=== PATIENT | female | born 1990 | race Caucasian/White ===

== ENCOUNTER 2019-05-19 11:55 | Emergency (ER) | payer MEDICAID ==
[2019-05-19] MEDS ORDERED: Sodium Chloride 0.9% 10 ML Syringe FLUSH PRN (12:33)
[2019-05-19] MEDS ORDERED: Sodium Chloride 0.9% 1,000 ML IV STA (12:33)
--- NOTE | 2019-05-19 14:29 | EDM.PDOC ---
ED HPI GENERAL MEDICAL PROBLEM - General Chief Complaint: Syncope Stated Complaint: SYNCOPE Time Seen by Provider: 05/19/19 12:21 Source of Information: Reports: Patient History Limitations: Reports: No Limitations - History of Present Illness INITIAL COMMENTS - FREE TEXT/NARRATIVE: The patient presents for syncope. She was at work and did not feel right. She was a little nauseated. She went to go sit down and she did not make it. She passed out. She was out for a couple seconds. She has no injuries. She has no headache, neck pain, chest pain or abdominal pain. She is at about 10 weeks gestation. Her LNMP is 03/03/19. She has no vaginal bleeding or discharge. She feels better now. She has no fever, chills, or cough. Onset: Gradual Duration: Minutes: Severity: Moderate Improves with: Reports: None Worsens with: Reports: None Associated Symptoms: Reports: No Other Symptoms - Related Data Allergies Allergy/AdvReac Type Severity Reaction Status Date / Time azithromycin Allergy Hives Verified 05/19/19 12:24 lanolin Allergy Cannot Verified 05/19/19 12:24 Remember Pain Medication. Allergy Airway Uncoded 05/19/19 12:24 Tightness Home Meds: Home Meds Pnv No.95/Ferrous Fum/Folic AC [ Caplet] 1 tab PO DAILY 05/19/19 [ History] Past Medical History - Past Surgical History HEENT Surgical History: Reports: Oral Surgery GI Surgical History: Reports: Cholecystectomy Female Surgical History: Reports: Section Neurological Surgical History: Reports: C-Spine Social & Family History - Tobacco Use Smoking Status *Q: Current Every Day Smoker Years of Tobacco use: 14 Packs/Tins Daily: 0.2 - Caffeine Use Caffeine Use: Reports: Coffee, Soda - Recreational Drug Use Recreational Drug Use: No ED ROS GENERAL - Review of Systems Review Of Systems: See Below Constitutional: Reports: No Symptoms HEENT: Reports: No Symptoms Respiratory: Reports: No Symptoms Cardiovascular: Reports: Syncope. Denies: Chest Pain Endocrine: Reports: No Symptoms GI/Abdominal: Reports: No Symptoms : Reports: No Symptoms - Physical Exam Exam: See Below Exam Limited By: No Limitations General Appearance: Alert, No Apparent Distress Ears: Normal External Exam Nose: Normal Inspection Head Exam: Atraumatic, Normocephalic Neck: Normal Inspection, Supple, Non-Tender Respiratory/Chest: No Respiratory Distress, Lungs Clear, Normal Breath Sounds Cardiovascular: Regular Rate, Rhythm, No Edema, No Murmur GI/Abdominal: Soft, Non-Tender, No Organomegaly, No Mass Neuro Exam (Abbreviated): Alert, Oriented, No Motor/Sensory Deficits Course - Vital Signs Last Recorded V/S: Last Vital Signs Temp 97.8 F 05/19/19 12:20 Pulse 56 L 05/19/19 12:20 Resp 21 H 05/19/19 12:20 BP 108/51 L 05/19/19 12:20 Pulse Ox 100 05/19/19 12:20 Orthostatic Blood Pressure [ 103/75 Standing] Orthostatic Blood Pressure [ 103/79 Sitting] Orthostatic Blood Pressure [ 96/52 Supine] - Orders/Labs/Meds Orders: Active Orders 24 hr Category Date Time Status Orthostatic Vital Signs [RC] ASDIRECTED Care 05/19/19 12:28 Active Peripheral IV Care [RC] . DIRECTED Care 05/19/19 12:33 Active UA W/MICROSCOPIC [URIN] Stat Lab 05/19/19 14:00 Results Sodium Chloride 0.9% [Saline Flush] Med 05/19/19 12:33 Active 10 ml FLUSH ASDIRECTED PRN Peripheral IV Insertion Adult [OM.PC] Stat Oth 05/19/19 12:33 Ordered Medication Orders Sodium Chloride (Saline Flush) 10 ml FLUSH ASDIRECTED PRN PRN Reason: Keep Vein Open Last Admin: 05/19/19 12:50 Dose: 10 ml Labs: Laboratory Tests 05/19/19 05/19/19 05/19/19 Range/Units 12:50 12:50 12:50 WBC 8.84 (3.98-10.04) K/mm3 RBC 4.25 (3.98-5.22) M/mm3 Hgb 13.1 (11.2-15.7) gm/dl Hct 39.2 (34.1-44.9) % MCV 92.2 (79.4-94.8) fl MCH 30.8 (25.6-32.2) pg MCHC 33.4 (32.2-35.5) g/dl RDW Std Deviation 39.7 (36.4-46.3) fL Plt Count 331 (182-369) K/mm3 MPV 9.8 (9.4-12.3) fl Neut % (Auto) 67.0 (34.0-71.1) % Lymph % (Auto) 21.3 (19.3-51.7) % [place] % (Auto) 10.6 (4.7-12.5) % Eos % (Auto) 0.9 (0.7-5.8) Baso % (Auto) 0.1 (0.1-1.2) % Neut # (Auto) 5.92 (1.56-6.13) K/mm3 Lymph # (Auto) 1.88 (1.18-3.74) K/mm3 [place] # (Auto) 0.94 H (0.24-0.36) K/mm3 Eos # (Auto) 0.08 (0.04-0.36) K/mm3 Baso # (Auto) 0.01 (0.01-0.08) K/mm3 Sodium 138 (136-145) mEq/L Potassium 3.2 L (3.5-5.1) mEq/L Chloride 104 (98-107) mEq/L Carbon Dioxide 24 (21-32) mEq/L Anion Gap 13.2 (5-15) BUN 7 (7-18) mg/dL Creatinine 0.5 L (0.55-1.02) mg/dL Est Cr Clr Drug Dosing 149.39 mL/min Estimated GFR (MDRD) > 60 (>60) mL/min BUN/Creatinine Ratio 14.0 (14-18) Glucose 85 (74-106) mg/dL Calcium 8.6 (8.5-10.1) mg/dL Total Bilirubin 0.3 (0.2-1.0) mg/dL AST 10 L (15-37) U/L ALT 16 (14-59) U/L Alkaline Phosphatase 44 L (46-116) U/L Total Protein 7.0 (6.4-8.2) g/dl Albumin 3.2 L (3.4-5.0) g/dl Globulin 3.8 gm/dL Albumin/Globulin Ratio 0.8 L (1-2) HCG, Quant 73448.0 mIU/mL Urine Color (Yellow) Urine Appearance (Clear) Urine pH (5.0-8.0) Ur Specific [place] (1.005-1.030) Urine Protein (Negative) Urine Glucose (UA) (Negative) Urine Ketones (Negative) Urine Occult Blood (Negative) Urine Nitrite (Negative) Urine Bilirubin (Negative) Urine Urobilinogen (0.2-1.0) Ur Leukocyte Esterase (Negative) 05/19/19 Range/Units 14:00 WBC (3.98-10.04) K/mm3 RBC (3.98-5.22) M/mm3 Hgb (11.2-15.7) gm/dl Hct (34.1-44.9) % MCV (79.4-94.8) fl MCH (25.6-32.2) pg MCHC (32.2-35.5) g/dl RDW Std Deviation (36.4-46.3) fL Plt Count (182-369) K/mm3 MPV (9.4-12.3) fl Neut % (Auto) (34.0-71.1) % Lymph % (Auto) (19.3-51.7) % [place] % (Auto) (4.7-12.5) % Eos % (Auto) (0.7-5.8) Baso % (Auto) (0.1-1.2) % Neut # (Auto) (1.56-6.13) K/mm3 Lymph # (Auto) (1.18-3.74) K/mm3 [place] # (Auto) (0.24-0.36) K/mm3 Eos # (Auto) (0.04-0.36) K/mm3 Baso # (Auto) (0.01-0.08) K/mm3 Sodium (136-145) mEq/L Potassium (3.5-5.1) mEq/L Chloride (98-107) mEq/L Carbon Dioxide (21-32) mEq/L Anion Gap (5-15) BUN (7-18) mg/dL Creatinine (0.55-1.02) mg/dL Est Cr Clr Drug Dosing mL/min Estimated GFR (MDRD) (>60) mL/min BUN/Creatinine Ratio (14-18) Glucose (74-106) mg/dL Calcium (8.5-10.1) mg/dL Total Bilirubin (0.2-1.0) mg/dL AST (15-37) U/L ALT (14-59) U/L Alkaline Phosphatase (46-116) U/L Total Protein (6.4-8.2) g/dl Albumin (3.4-5.0) g/dl Globulin gm/dL Albumin/Globulin Ratio (1-2) HCG, Quant mIU/mL Urine Color Yellow (Yellow) Urine Appearance Clear (Clear) Urine pH 7.0 (5.0-8.0) Ur Specific [place] 1.020 (1.005-1.030) Urine Protein 1+ H (Negative) Urine Glucose (UA) Negative (Negative) Urine Ketones Negative (Negative) Urine Occult Blood Negative (Negative) Urine Nitrite Negative (Negative) Urine Bilirubin Negative (Negative) Urine Urobilinogen 0.2 (0.2-1.0) Ur Leukocyte Esterase Negative (Negative) Meds: Medications Generic Name Dose Route Start Last Admin Trade Name Freq PRN Reason Stop Dose Admin Sodium Chloride 10 ml 05/19/19 12:33 05/19/19 12:50 Saline Flush FLUSH 10 ml ASDIRECTED PRN Administration Keep Vein Open Discontinued Medications Generic Name Dose Route Start Last Admin Trade Name Freq PRN Reason Stop Dose Admin Sodium Chloride 1,000 mls @ 1,000 mls/hr 05/19/19 12:33 05/19/19 13:00 Normal Saline IV 05/19/19 13:32 1,000 mls/hr .BOLUS STA Administration - Re-Assessments/Exams Free Text/Narrative Re-Assessment/Exam: 05/19/19 14:27 I ordered an IV NS 1L bolus, labs, UA and an US to evaluate the fetus. Her CBC looks good. Her K was low at 3.2. Her HCG is elevated at 31,711. Her UA shows no UTI. I am waiting for the US report. 05/19/19 15:03 The US shows single IUP at 12 weeks 6 days gestation. ALEJO is 11/25/19. Small subchorionic hemorrhage believed to be old. Nothing acute is appreciated on obstetrical US. Departure - Departure Time of Disposition: 15:05 Disposition: Home, Self-Care 01 Condition: Good Clinical Impression: Dehydration Syncope Qualifiers: Syncope type: unspecified Qualified Code(s): R55 - Syncope and collapse Qualifiers: Weeks of gestation: 12 weeks Qualified Code(s): Z3A.12 - 12 weeks gestation of - Discharge Information *PRESCRIPTION DRUG MONITORING PROGRAM REVIEWED*: Not Applicable *COPY OF PRESCRIPTION DRUG MONITORING REPORT IN PATIENT TINO: Not Applicable Referrals: Hien Burch MD [Primary Care Provider] - 1 Week Forms: ED Department Discharge, ED Return to Work/School Form Additional Instructions: Drink plenty of fluids. Take tylenol for any pain. Follow up with Dr Bruch. Please return if you are worse. Sepsis Event Note - Evaluation Sepsis Screening Result: No Definite Risk - Focused Exam Vital Signs: Vital Signs Temp Pulse Resp BP Pulse Ox 05/19/19 12:20 97.8 F 56 L 21 H 108/51 L 100 Date Exam was Performed: 05/19/19 Time Exam was Performed: 15:03 - My Orders Last 24 Hours: My Active Orders 05/19/19 12:28 Orthostatic Vital Signs [RC] ASDIRECTED 05/19/19 12:33 Peripheral IV Care [RC] . DIRECTED Sodium Chloride 0.9% [Saline Flush] 10 ml FLUSH ASDIRECTED PRN Peripheral IV Insertion Adult [OM.PC] Stat 05/19/19 14:00 UA W/MICROSCOPIC [URIN] Stat - Assessment/Plan Last 24 Hours: My Active Orders 05/19/19 12:28 Orthostatic Vital Signs [RC] ASDIRECTED 05/19/19 12:33 Peripheral IV Care [RC] . DIRECTED Sodium Chloride 0.9% [Saline Flush] 10 ml FLUSH ASDIRECTED PRN Peripheral IV Insertion Adult [OM.PC] Stat 05/19/19 14:00 UA W/MICROSCOPIC [URIN] Stat
--- NOTE | 2019-05-19 14:54 | US ---
Obstetrical ultrasound: Multiple real-time images were obtained transabdominally. Comparison: No prior imaging for current is available. Dates: Current ultrasound: ALEJO 11/25/19, gestational age 12 weeks 6 days Minimal subchorionic hemorrhage is seen believed to be old. Single intrauterine fetus is seen. Amniotic fluid volume is normal. Placenta is developing anteriorly without findings of abruption. Maternal ovaries are seen and appear within normal limits. Measurements: Oliver-rump length: 6.01 cm - 12 weeks 4 days BPD: 1.92 cm - 13 weeks 1 day Head circumference: 7.06 cm - 13 weeks 0 days Abdominal circumference: 6.11 cm - 13 weeks 0 days Femur length: 0.64 cm - 12 weeks 0 days Estimated weight: 59 g (0 lbs. 2 oz.), Estimated weight at the 8th percentile for age by current ultrasound Heart rate: 144 bpm Impression: 1. Single intrauterine gestation. Dates as noted above. 2. Small subchorionic hemorrhage believed to be old. 3. Nothing acute is appreciated on obstetrical ultrasound. Diagnostic code #2 This report was dictated in [place] Standard Time
== END 2019-05-19 15:24 | disposition home or self-care (01) ==
LOC: JD.ED 11:55
DX: O99.281 Endocrine, nutritional and metabolic diseases complicating pregnancy, first trimester (principal); E86.0 Dehydration; O99.89 Other specified diseases and conditions complicating pregnancy, childbirth and the puerperium; R55 Syncope and collapse; O99.331 Smoking (tobacco) complicating pregnancy, first trimester; F17.210 Nicotine dependence, cigarettes, uncomplicated; Z3A.12 12 weeks gestation of pregnancy; Z88.8 Allergy status to other drugs, medicaments and biological substances; Z88.1 Allergy status to other antibiotic agents; Z90.49 Acquired absence of other specified parts of digestive tract
CPT/HCPCS: 36415; 76801; 80053; 81001; 84702; 85025; 96360; 99284; J7030; 99283

== ENCOUNTER 2019-11-18 04:26 | Inpatient (IN) | payer MEDICAID ==
[~2019-11-18 04:26] MED LIST: Citric Acid/Sodium Citrate Solution 30 ML Cup PO ONE; Lactated Ringers 1,000 ML IV SCH; Metoclopramide 10 MG/2 ML SDV IVPUSH ONE; Sodium Chloride 0.9% 10 ML Syringe FLUSH PRN
[2019-11-18] MEDS ORDERED: Sodium Chloride 0.9% 10 ML Syringe FLUSH PRN (05:30)
[2019-11-18] MEDS ORDERED: Citric Acid/Sodium Citrate Solution 30 ML Cup ONE (06:11)
[2019-11-18] MEDS ORDERED: Lactated Ringers 2,000 ML ONE ×2 (06:11→06:45)
[2019-11-18] MEDS: Lactated Ringers 1,000 ML IV SCH ×2 (06:22→06:50)
[2019-11-18] MEDS ORDERED: Metoclopramide 10 MG/2 ML SDV IVPUSH ONE (06:30)
[2019-11-18] MEDS ORDERED: Citric Acid/Sodium Citrate Solution 30 ML Cup PO ONE (06:30)
[2019-11-18] MEDS ORDERED: ceFAZolin 1 GM Vial ONE (06:45)
[2019-11-18] MEDS ORDERED: Ondansetron 4 MG/2 ML SDV ONE (06:45)
[2019-11-18] MEDS ORDERED: Morphine PF 1 MG/ML Amp ONE (06:45)
[2019-11-18] MEDS ORDERED: Oxytocin 10 Units/1 ML SDV ONE (06:45)
[2019-11-18] MEDS ORDERED: Ketorolac 30 MG/ML SDV ONE (06:45)
[2019-11-18] MEDS ORDERED: Bupivacaine 0.75%/D5W 2 ML Amp ONE (06:47)
[2019-11-18] MEDS ORDERED: Bupivacaine 0.5% 30 ML SDV ONE (07:17)
[2019-11-18] MEDS ORDERED: Midazolam 1 MG/ML 2 ML SDV ONE ×2 (08:46→08:52)
[2019-11-18] MEDS ORDERED: fentaNYL 100 MCG/2 ML SDV ONE (08:50)
[2019-11-18] MEDS ORDERED: Ketamine 500 mg/10 ML MDV ONE (08:59)
[2019-11-18] MEDS ORDERED: HYDROmorphone 0.5 MG/0.5 ML Syringe ONE ×2 (09:14→09:19)
[2019-11-18] MEDS ORDERED: diphenhydrAMINE 50 MG/ML SDV IVPUSH PRN ×2 (09:30→09:35)
[2019-11-18] MEDS ORDERED: Ondansetron 4 MG/2 ML SDV IVPUSH PRN (09:30)
[2019-11-18] MEDS ORDERED: fentaNYL 100 MCG/2 ML SDV IVPUSH PRN (09:30)
--- NOTE | 2019-11-18 09:30 | PCM.OPNOTE ---
- General Post-Op/Procedure Note Date of Surgery/Procedure: 11/18/19 Operative Procedure(s): repeat Findings: viable male, weight 6#7oz, apgars pending, normal uterus, tubes and ovaries at 0910. Primary Surgeon: Ana Laura Stern Anesthesia Provider: Marilin Quick Mowing Machine Operator: Hien Burch Fluid Replacement, Intraop: 2,000 Output, Urine Amount: 100 EBL in mLs: 800 Complications: None Condition: Good Free Text/Narrative:: The patient was taken to the operating room where spinal anesthesia was dosed to surgical levels without difficulty. The patient was prepped and draped in the usual sterile fashion in the dorsal supine position with a leftward tilt. A Pfannenstiel skin incision was made with the scalpel and carried through to the underlying layer of fascia. The fascia was incised in the midline and extended laterally using Hess scissors. Yen clamps were used to elevate the superior aspect of the fascial incision, which was elevated, and the underlying rectus muscles were dissected off bluntly and using Hess scissors. Attention was then turned to the inferior aspect of the fascial incision, which in similar fashion was grasped with Yen clamps, elevated, and the underlying rectus muscles were dissected off bluntly and using the hess. The rectus muscles were dissected in the midline. The peritoneum was entered bluntly; this incision was extended superiorly and inferiorly with good visualization of the bladder. The bladder blade was inserted. The vesicouterine peritoneum was identified and entered sharply using Metzenbaum scissors. This incision was extended laterally and the bladder flap was created digitally. The bladder blade was reinserted. The lower uterine segment was incised in a transverse fashion using the scalpel and with digital traction. Clear fluid was noted. The infant was subsequently delivered by flexing the head to the incision. Body and shoulders followed without difficulty. The cord was clamped and cut. The infant was subsequently handed to the awaiting seed sales manager whose presence had been requested.. The placenta was delivered spontaneously intact with a three-vessel cord noted. The uterus was exteriorized and cleared of all clots and debris. The uterine incision was repaired in 2 layers using 0 monocryl. Hemostasis was visualized. Hemostasis was visualized bilaterally. The uterus was returned to the abdomen. The uterine incision was reexamined and it was noted to be hemostatic. The pelvis was copiously irrigated. The fascia was closed with 1 PDS suture, and the skin was closed with 3-0 monocryl. Sponge, lap, and instrument counts were correct x2. The patient was stable at the c ompletion of the procedure and was subsequently transferred to the recovery room in stable condition.
--- NOTE | 2019-11-18 09:32 | PCM.POSTAN ---
POST ANESTHESIA ASSESSMENT - MENTAL STATUS Mental Status: Alert, Oriented - VITAL SIGNS Vital Signs: Last Vital Signs Temp 36.3 C 11/18/19 05:36 Pulse 77 11/18/19 05:36 Resp 16 11/18/19 05:36 BP 121/66 11/18/19 05:36 Pulse Ox 97 11/18/19 05:36 0922 123/65 72 12 96% 97.4F - RESPIRATORY Respiratory Status: Respiratory Rate WNL, Airway Patent, O2 Saturation Stable - CARDIOVASCULAR CV Status: Pulse Rate WNL, Blood Pressure Stable - GASTROINTESTINAL GI Status: No Symptoms - PAIN Pain Score: 5 - POST OP HYDRATION Hydration Status: Adequate & Stable
[2019-11-18] MEDS ORDERED: ePHEDrine 50 MG/ML SDV IVPUSH PRN (09:35)
[2019-11-18] MEDS ORDERED: Dextrose 5%-Lactated Ringers 1,000 ML IV SCH (09:35)
[2019-11-18] MEDS ORDERED: Naloxone 0.4 MG/ML SDV IVPUSH PRN (09:35)
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
[2019-11-18] MEDS ORDERED: Acetaminophen/oxyCODONE 325-5 MG Tab PO PRN (10:18)
[2019-11-18] MEDS: Acetaminophen/oxyCODONE 325-5 MG Tab PO PRN ×3 (12:56→23:08)
[2019-11-18] MEDS: Ketorolac 30 MG/ML SDV IVPUSH SCH ×2 (14:57→21:01)
[2019-11-19] MEDS: Ketorolac 30 MG/ML SDV IVPUSH SCH (03:17)
[2019-11-19] MEDS: Acetaminophen/oxyCODONE 325-5 MG Tab PO PRN ×5 (04:43→23:17)
--- NOTE | 2019-11-19 08:37 | PCM48HPAN ---
Post Anesthesia Note - EVALUATION WITHIN 48HRS OF ANESTHETIC Vital Signs in Normal Range: Yes Patient Participated in Evaluation: Yes Respiratory Function Stable: Yes Airway Patent: Yes Cardiovascular Function Stable: Yes Hydration Status Stable: Yes Pain Control Satisfactory: Yes Nausea and Vomiting Control Satisfactory: Yes Mental Status Recovered: Yes Vital Signs: Last Vital Signs Temp 36.4 C 11/19/19 03:24 Pulse 74 11/19/19 03:24 Resp 16 11/19/19 06:55 BP 118/70 11/19/19 03:24 Pulse Ox 98 11/19/19 03:24 - COMMENTS/OBSERVATIONS Free Text/Narrative:: no anesthesia complications noted
--- NOTE | 2019-11-19 08:37 | PCM.PNPP ---
- General Info Date of Service: 11/19/19 Functional Status: Reports: Pain Controlled - Review of Systems General: Reports: No Symptoms HEENT: Reports: No Symptoms Pulmonary: Reports: No Symptoms Cardiovascular: Reports: No Symptoms Gastrointestinal: Reports: No Symptoms Genitourinary: Reports: No Symptoms Musculoskeletal: Reports: No Symptoms Skin: Reports: No Symptoms Neurological: Reports: No Symptoms Psychiatric: Reports: No Symptoms - Patient Data Vital Signs - Most Recent: Last Vital Signs Temp 36.4 C 11/19/19 03:24 Pulse 74 11/19/19 03:24 Resp 16 11/19/19 06:55 BP 118/70 11/19/19 03:24 Pulse Ox 98 11/19/19 03:24 Weight - Most Recent: 117.617 kg I&O - Last 24 Hours: Intake & Output 11/18/19 11/19/19 11/19/19 22:59 06:59 14:59 Intake Total 1800 Output Total 1999 2150 200 Balance -200 -2150 -200 Lab Results - Last 24 Hours: Laboratory Results - last 24 hr 11/18/19 11/18/19 11/19/19 Range/Units 06:21 06:21 04:38 WBC 14.26 H (3.98-10.04) K/mm3 RBC 3.75 L (3.98-5.22) M/mm3 Hgb 11.3 (11.2-15.7) gm/dl Hct 34.8 (34.1-44.9) % MCV 92.8 (79.4-94.8) fl MCH 30.1 (25.6-32.2) pg MCHC 32.5 (32.2-35.5) g/dl RDW Std Deviation 40.9 (36.4-46.3) fL Plt Count 426 H (182-369) K/mm3 MPV 10.6 (9.4-12.3) fl Neut % (Auto) 67.9 (34.0-71.1) % Lymph % (Auto) 21.5 (19.3-51.7) % Potter % (Auto) 8.8 (4.7-12.5) % Eos % (Auto) 1.1 (0.7-5.8) Baso % (Auto) 0.2 (0.1-1.2) % Neut # (Auto) 9.69 H (1.56-6.13) K/mm3 Lymph # (Auto) 3.06 (1.18-3.74) K/mm3 Potter # (Auto) 1.25 H (0.24-0.36) K/mm3 Eos # (Auto) 0.16 (0.04-0.36) K/mm3 Baso # (Auto) 0.03 (0.01-0.08) K/mm3 RPR Non-reactive (NONREACTIVE) Blood Type B POSITIVE Gel Antibody Screen Negative Med Orders - Current: Current Medications Diphenhydramine HCl (Benadryl) 25 mg IVPUSH Q6H PRN PRN Reason: Pruritis Last Admin: 11/18/19 21:00 Dose: 25 mg Documented by: Diphenhydramine HCl (Benadryl) 25 mg IVPUSH Q6H PRN PRN Reason: Itching or Nausea Last Admin: 11/18/19 15:53 Dose: 25 mg Documented by: Ephedrine Sulfate (Ephedrine Sulfate) 5 mg IVPUSH SEECOMMENT PRN PRN Reason: Other Fentanyl (Sublimaze) 50 mcg IVPUSH Q5M PRN PRN Reason: Pain Last Admin: 11/18/19 09:35 Dose: 50 mcg Documented by: Ibuprofen (Motrin) 600 mg PO Q6H PRN PRN Reason: pain Naloxone HCl (Narcan) 0.1 mg IVPUSH SEECOMMENT PRN PRN Reason: Respiratory Depression Ondansetron HCl (Zofran) 4 mg IVPUSH ONETIME PRN PRN Reason: Nausea/Vomiting Oxycodone/Acetaminophen (Percocet 325-5 Mg) 1 tab PO Q4H PRN PRN Reason: Pain (moderate 4-6) Oxycodone/Acetaminophen (Percocet 325-5 Mg) 2 tab PO Q4H PRN PRN Reason: Pain (severe 7-10) Last Admin: 11/19/19 04:43 Dose: 2 tab Documented by: Discontinued Medications Bupivacaine HCl (Marcaine 0.5%) Confirm Administered Dose 30 ml .ROUTE .STK-MED ONE Stop: 11/18/19 07:18 Last Admin: 11/18/19 08:43 Dose: 20 ml Documented by: Bupivacaine HCl/Dextrose (Marcaine 0.75% Spinal) Confirm Administered Dose 2 ml .ROUTE .STK-MED ONE Stop: 11/18/19 06:48 Cefazolin Sodium (Ancef) Confirm Administered Dose 2 gm .ROUTE .ST-MED ONE Stop: 11/18/19 06:46 Citric Acid/Sodium Citrate (Bicitra Solution) 30 ml PO ONETIME ONE Stop: 11/18/19 00:31 Last Admin: 11/18/19 06:08 Dose: Not Given Documented by: Citric Acid/Sodium Citrate (Bicitra Solution) 30 ml PO ONETIME ONE Stop: 11/18/19 06:31 Last Admin: 11/18/19 07:07 Dose: 30 ml Documented by: Citric Acid/Sodium Citrate (Bicitra Solution) Confirm Administered Dose 30 ml .ROUTE .ST-MED ONE Stop: 11/18/19 06:12 Last Admin: 11/18/19 10:15 Dose: Not Given Documented by: Fentanyl (Sublimaze) Confirm Administered Dose 100 mcg .ROUTE .ST-MED ONE Stop: 11/18/19 08:51 Hydromorphone HCl (Dilaudid) Confirm Administered Dose 0.5 mg .ROUTE .STK-MED ONE Stop: 11/18/19 09:15 Hydromorphone HCl (Dilaudid) Confirm Administered Dose 0.5 mg .ROUTE .ST-MED ONE Stop: 11/18/19 09:20 Lactated Ringer's (Ringers, Lactated) 1,000 mls @ 125 mls/hr IV ASDIRECTED [facility] Lactated Ringer's (Ringers, Lactated) 1,000 mls @ 125 mls/hr IV ASDIRECTED [facility] Last Admin: 11/18/19 06:50 Dose: 125 mls/hr Documented by: Lactated Ringer's (Ringers, Lactated) Confirm Administered Dose 2,000 mls @ as directed .ROUTE .STK-MED ONE Stop: 11/18/19 06:12 Last Admin: 11/18/19 10:15 Dose: Not Given Documented by: Lactated Ringer's (Ringers, Lactated) Confirm Administered Dose 2,000 mls @ as directed .ROUTE .STK-MED ONE Stop: 11/18/19 06:46 Dextrose/Lactated Ringer's (Dextrose 5%-Lactated Ringers) 1,000 mls @ 125 mls/hr IV ASDIRECTED ADALBERTO Stop: 11/18/19 17:34 Last Admin: 11/18/19 11:23 Dose: 125 mls/hr Documented by: Ketamine HCl (Ketalar) Confirm Administered Dose 500 mg .ROUTE .STK-MED ONE Stop: 11/18/19 09:00 Ketorolac Tromethamine (Toradol) Confirm Administered Dose 30 mg .ROUTE .STK-MED ONE Stop: 11/18/19 06:46 Ketorolac Tromethamine (Toradol) 30 mg IVPUSH Q6H [facility] Stop: 11/19/19 03:01 Last Admin: 11/19/19 03:17 Dose: 30 mg Documented by: Metoclopramide HCl (Reglan) 10 mg IVPUSH ONETIME ONE Stop: 11/18/19 00:31 Last Admin: 11/18/19 06:08 Dose: Not Given Documented by: Metoclopramide HCl (Reglan) 10 mg IVPUSH ONETIME ONE Stop: 11/18/19 06:31 Last Admin: 11/18/19 07:07 Dose: 10 mg Documented by: Midazolam HCl (Versed 1 Mg/Ml) Confirm Administered Dose 2 mg .ROUTE .STK-MED ONE Stop: 11/18/19 08:47 Midazolam HCl (Versed 1 Mg/Ml) Confirm Administered Dose 2 mg .ROUTE .STK-MED ONE Stop: 11/18/19 08:53 Morphine Sulfate (Duramorph Pf) Confirm Administered Dose 1 mg .ROUTE .STK-MED ONE Stop: 11/18/19 06:46 Ondansetron HCl (Zofran) Confirm Administered Dose 4 mg .ROUTE .STK-MED ONE Stop: 11/18/19 06:46 Oxytocin (Pitocin) Confirm Administered Dose 10 unit .ROUTE .STK-MED ONE Stop: 11/18/19 06:46 Sodium Chloride (Saline Flush) 10 ml FLUSH ASDIRECTED PRN PRN Reason: Keep Vein Open Sodium Chloride (Saline Flush) 10 ml FLUSH ASDIRECTED PRN PRN Reason: Keep Vein Open - Interaction Infant Disposition, : [place] in Room with Family Support Person: Mother - Recovery Exam Fundal Tone: Firm Fundal Level: At Umbilicus Fundal Placement: Midline Lochia Amount: Scant Lochia Color: Rubra/Red Perineum Description: Intact, Minimal Bruising/Swelling Episiotomy/Laceration: None Bladder Status: Indwelling Catheter in Place Urinary Elimination: Indwelling Catheter - Exam General: Alert, Oriented HEENT: Pupils Equal Neck: Supple Lungs: Clear to Auscultation, Normal Respiratory Effort Cardiovascular: Regular Rate, Regular Rhythm GI/Abdominal Exam: Normal Bowel Sounds, Soft, Non-Tender, No Organomegaly, No Distention, No Abnormal Bruit, No Mass, Pelvis Stable Extremities: Normal Inspection, Normal Range of Motion, Non-Tender, No Pedal Edema, Normal Capillary Refill Skin: Warm, Dry, Intact Wound/Incisions: Healing Well Neurological: No New Focal Deficit Psy/Mental Status: Alert, Normal Affect, Normal Mood - Problem List Review Problem List Initiated/Reviewed/Updated: Yes - My Orders Last 24 Hours: My Active Orders 11/18/19 09:35 Naloxone [Narcan] 0.1 mg IVPUSH SEECOMMENT PRN diphenhydrAMINE [Benadryl] 25 mg IVPUSH Q6H PRN ePHEDrine [ePHEDrine sulfate] 5 mg IVPUSH SEECOMMENT PRN 11/18/19 09:35 Communication Order [RC] PER UNIT ROUTINE Communication Order [RC] PER UNIT ROUTINE Notify Provider Intake and Out [RC] ASDIRECTED Assess Lochia [WOMSER] Per Unit Routine Assess Uterine Involution [WOMSER] Per Unit Routine Medication Administration Instruction [OM.PC] Routine 11/18/19 10:08 Consult to Case Management/Change Release Manager [CONS] Routine 11/18/19 10:18 Acetaminophen/oxyCODONE [Percocet 325-5 MG] 1 tab PO Q4H PRN 11/18/19 10:20 Acetaminophen/oxyCODONE [Percocet 325-5 MG] 2 tab PO Q4H PRN 11/18/19 Lunch Regular Diet [DIET] 11/19/19 09:00 Ibuprofen [Motrin] 600 mg PO Q6H PRN 11/19/19 09:26 Urinary Catheter Removal [RC] Per Unit Routine - Assessment Assessment:: Term . Doing well today. Pain controlled. Incision excellent.
[2019-11-19] MEDS ORDERED: Ibuprofen 600 MG Tab PO PRN (09:00)
[2019-11-19] MEDS: Docusate Sodium 100 MG Cap PO PRN (17:31)
--- NOTE | 2019-11-20 09:24 | PCM.DCSUM1 ---
Discharge Summary - Hospital Course Free Text/Narrative:: [facility] Post-Op/Procedure Note Patient Name: OSCAR VAZQUEZ Date of : 89 Patient Status: Inpatient Attending Provider: Ana Laura Stern Date: 11/18/19 09:28 Initialization Date: 11/18/19 09:28 - General Post-Op/Procedure Note Date of Surgery/Procedure: 11/18/19 Operative Procedure(s): repeat Findings: viable male, weight 6#7oz, apgars pending, normal uterus, tubes and ovaries at 0910. Primary Surgeon: Ana Laura Stern Anesthesia Provider: Marilin Quick Zmt Operator: Hien Burch Fluid Replacement, Intraop: 2,000 Output, Urine Amount: 100 EBL in mLs: 800 Complications: None Condition: Good Free Text/Narrative:: The patient was taken to the operating room where spinal anesthesia was dosed to surgical levels without difficulty. The patient was prepped and draped in the usual sterile fashion in the dorsal supine position with a leftward tilt. A Pfannenstiel skin incision was made with the scalpel and carried through to the underlying layer of fascia. The fascia was incised in the midline and extended laterally using Hess scissors. Yen clamps were used to elevate the superior aspect of the fascial incision, which was elevated, and the underlying rectus muscles were dissected off bluntly and using Hess scissors. Attention was then turned to the inferior aspect of the fascial incision, which in similar fashion was grasped with Yen clamps, elevated, and the underlying rectus muscles were dissected off bluntly and using the hess. The rectus muscles were dissected in the midline. The peritoneum was entered bluntly; this incision was extended superiorly and inferiorly with good visualization of the bladder. The bladder blade was inserted. The vesicouterine peritoneum was identified and entered sharply using Metzenbaum scissors. This incision was extended laterally and the bladder flap was created digitally. The bladder blade was reinserted. The lower uterine segment was incised in a transverse fashion using the scalpel and with digital traction. Clear fluid was noted. The was subsequently delivered by flexing the head to the incision. Body and shoulders followed without difficulty. The cord was clamped and cut. The infant was subsequently handed to the awaiting cosmetic sales consultant whose presence had been requested.. The placenta was delivered spontaneously intact with a three-vessel cord noted. The uterus was exteriorized and cleared of all clots and debris. The uterine incision was repaired in 2 layers using 0 monocryl. Hemostasis was visualized. Hemostasis was visualized bilaterally. The uterus was returned to the abdomen. The uterine incision was reexamined and it was noted to be hemostatic. The pelvis was copiously irrigated. The fascia was closed with 1 PDS suture, and the skin was closed with 3-0 monocryl. Sponge, lap, and instrument counts were correct x2. The patient was stable at the completion of the procedure and was subsequently transferred to the recovery room in stable condition. HPI Initial Comments: [facility] Post-Op/Procedure Note Patient Name: OSCAR VAZQUEZ Date of : 89 Patient Status: Inpatient Attending Provider: Ana Laura Stern Date: 11/18/19 09:28 Initialization Date: 11/18/19 09:28 - General Post-Op/Procedure Note Date of Surgery/Procedure: 11/18/19 Operative Procedure(s): repeat Findings: viable male, weight 6#7oz, apgars pending, normal uterus, tubes and ovaries at 0910. Primary Surgeon: Ana Laura Stern Anesthesia Provider: Marilin Quick Zmt Operator: Hien Burch Fluid Replacement, Intraop: 2,000 Output, Urine Amount: 100 EBL in mLs: 800 Complications: None Condition: Good Free Text/Narrative:: The patient was taken to the operating room where spinal anesthesia was dosed to surgical levels without difficulty. The patient was prepped and draped in the usual sterile fashion in the dorsal supine position with a leftward tilt. A Pfannenstiel skin incision was made with the scalpel and carried through to the underlying layer of fascia. The fascia was incised in the midline and extended laterally using Hess scissors. Yen clamps were used to elevate the superior aspect of the fascial incision, which was elevated, and the underlying rectus muscles were dissected off bluntly and using Hess scissors. Attention was then turned to the inferior aspect of the fascial incision, which in similar fashion was grasped with Yen clamps, elevated, and the underlying rectus muscles were dissected off bluntly and using the hess. The rectus muscles were dissected in the midline. The peritoneum was entered bluntly; this incision was extended superiorly and inferiorly with good visualization of the bladder. The bladder blade was inserted. The vesicouterine peritoneum was identified and entered sharply using Metzenbaum scissors. This incision was extended laterally and the bladder flap was created digitally. The bladder blade was reinserted. The lower uterine seg ment was incised in a transverse fashion using the scalpel and with digital traction. Clear fluid was noted. The infant was subsequently delivered by flexing the head to the incision. Body and shoulders followed without difficulty. The cord was clamped and cut. The was subsequently handed to the awaiting cosmetic sales consultant whose presence had been requested.. The placenta was delivered spontaneously intact with a three-vessel cord noted. The uterus was exteriorized and cleared of all clots and debris. The uterine incision was repaired in 2 layers using 0 monocryl. Hemostasis was visualized. Hemostasis was visualized bilaterally. The uterus was returned to the abdomen. The uterine incision was reexamined and it was noted to be hemostatic. The pelvis was copiously irrigated. The fascia was closed with 1 PDS suture, and the skin was closed with 3-0 monocryl. Sponge, lap, and instrument counts were correct x2. The patient was stable at the completion of the procedure and was subsequently transferred to the recovery room in stable condition. Brief History: [facility] . Post-Op/Procedure Note. Patient Name: OSCAR VAZQUEZ [facility] Record Number: [id number]. Date of : 89Patient Status: Inpatient. Attending Provider: Ana Laura SternAccount Number: [id number]. Date: 11/18/19 09:28Initialization Date: 11/18/19 09:28. - General Post-Op/Procedure Note. Date of Surgery/Procedure: 11/18/19. Operative Procedure(s): repeat . Findings: viable male, weight 6#7oz, apgars pending, normal uterus, tubes and ovaries at 0910. Primary Surgeon: Ana Laura Stern. Anesthesia Provider: Marilin Quick. Zmt Operator: Hien Burch Fluid Replacement, Intraop: 2,000. Output, Urine Amount: 100. EBL in mLs: 800. Complications: None. Condition: Good. Free Text/Narrative:: The patient was taken to the operating room where spinal anesthesia was dosed to surgical levels without difficulty. The patient was prepped and draped in the usual sterile fashion in the dorsal supine position with a leftward tilt. A Pfannenstiel skin incision was made with the scalpel and carried through to the underlying layer of fascia. The fascia was incised in the midline and extended laterally using Hess scissors. Yen clamps were used to elevate the superior aspect of the fascial incision, which was elevated, and the underlying rectus muscles were dissected off bluntly and using Hess scissors. Attention was then turned to the inferior aspect of the fascial incision, which in similar fashion was grasped with Yen clamps, elevated, and the underlying rectus muscles were dissected off bluntly and using the hess. The rectus muscles were dissected in the midline. The peritoneum was entered bluntly; this incision was extended superiorly and inferiorly with good visualization of the bladder. The bladder blade was inserted. The vesicouterine peritoneum was identified and entered sharply using Metzenbaum scissors. This incision was extended laterally and the bladder flap was created digitally. The bladder blade was reinserted. The lower uterine segment was incised in a transverse fashion using the scalpel and with digital traction. Clear fluid was noted. The was subsequently delivered by flexing the head to the incision. Body and shoulders followed without difficulty. The cord was clamped and cut. The was subsequently handed to the awaiting cosmetic sales consultant whose presence had been requested.. The placenta was delivered spontaneously intact with a three-vessel cord noted. The uterus was exteriorized and cleared of all clots and debris. The uterine incision was repaired in 2 layers using 0 monocryl. Hemostasis was visualized. Hemostasis was visualized bilaterally. The uterus was returned to the abdomen. The uterine incision was reexamined and it was noted to be hemostatic. The pelvis was copiously irrigated. The fascia was closed with 1 PDS suture, and the skin was closed with 3-0 monocryl. Sponge, lap, and instrument counts were correct x2. The patient was stable at the completion of the procedure and was subsequently transferred to the recovery room in stable co ndition. Diagnosis: Stroke: No - Discharge Data Discharge Date: 11/20/19 Discharge Disposition: Home, Self-Care 01 Condition: Good - Referral to Home Health Primary Care Physician: Ana Laura Stern MD - Discharge Diagnosis/Problem(s) (1) delivery delivered SNOMED Code(s): 821904051 ICD Code: O82 - ENCOUNTER FOR DELIVERY WITHOUT INDICATION Status: Acute Current Visit: Yes - Patient Summary/Data Operative Procedure(s) Performed: repeat Complications: none Consults: Consultations 11/18/19 10:08 Consult to Case Management/Inside Meter Tester [CONS] Routine Hospital Course: uneventful - Patient Instructions Diet: Usual Diet as Tolerated Driving: Do Not Drive (2 weeks) Showering/Bathing: May Shower, No Tub Bathing/Swimming (6 weeks) Wound/Incision Care: Keep Operative Site/Wound Site Clean and Dry Notify Provider of: Fever, Increased Pain, Swelling and Redness, Drainage, Nausea and/or Vomiting - Discharge Plan *PRESCRIPTION DRUG MONITORING PROGRAM REVIEWED*: Not Applicable *COPY OF PRESCRIPTION DRUG MONITORING REPORT IN PATIENT TINO: Not Applicable Prescriptions/Med Rec: Acetaminophen/oxyCODONE [Percocet 325-5 MG] 1 tab PO Q6H PRN #28 tablet PRN Reason: Pain (Moderate 4-6) Sertraline [Zoloft] 50 mg PO DAILY #30 tab Home Medications: Home Meds Loratadine [Claritin] 10 mg PO DAILY PRN 11/18/19 [History] No122/Iron/Folic Acid [ Multi Tablet] 1 each PO DAILY 11/18/19 [History] Acetaminophen/oxyCODONE [Percocet 325-5 MG] 1 tab PO Q6H PRN #28 tablet 11/20/19 [Rx] Sertraline [Zoloft] 50 mg PO DAILY #30 tab 11/20/19 [Rx] Patient Handouts: Steps to Quit Smoking Referrals: Ana Laura Stern MD [Primary Care Provider] - (Call Friday to make appointment see in follow-up care.) - Discharge Summary/Plan Comment DC Time >30 min.: No Discharge Summary/Plan Comment: EPDS no suicidal plans, ideations, desire to hurt self or others. Sertraline 50 mg take 1/2 tab daily x8 days then 50 mg po daily Disp 30 Rx 0 - Patient Data Vitals - Most Recent: Last Vital Signs Temp 98.4 F 11/20/19 03:24 Pulse 65 11/19/19 19:40 Resp 16 11/20/19 03:24 BP 115/51 L 11/20/19 03:24 Pulse Ox 96 11/20/19 03:24 Weight - Most Recent: 259 lb 4.8 oz I&O - Last 24 hours: Intake & Output 11/19/19 11/20/19 11/20/19 22:59 06:59 14:59 Intake Total 640 Balance 640 Med Orders - Current: Current Medications Diphenhydramine HCl (Benadryl) 25 mg IVPUSH Q6H PRN PRN Reason: Itching or Nausea Last Admin: 11/18/19 15:53 Dose: 25 mg Documented by: Docusate Sodium (Colace) 100 mg PO BID PRN PRN Reason: Constipation Last Admin: 11/19/19 17:31 Dose: 100 mg Documented by: Ephedrine Sulfate (Ephedrine Sulfate) 5 mg IVPUSH SEECOMMENT PRN PRN Reason: Other Ibuprofen (Motrin) 600 mg PO Q6H PRN PRN Reason: pain Last Admin: 11/20/19 02:31 Dose: 600 mg Documented by: Naloxone HCl (Narcan) 0.1 mg IVPUSH SEECOMMENT PRN PRN Reason: Respiratory Depression Oxycodone/Acetaminophen (Percocet 325-5 Mg) 1 tab PO Q4H PRN PRN Reason: Pain (moderate 4-6) Last Admin: 11/20/19 05:13 Dose: 1 tab Documented by: Oxycodone/Acetaminophen (Percocet 325-5 Mg) 2 tab PO Q4H PRN PRN Reason: Pain (severe 7-10) Last Admin: 11/19/19 23:17 Dose: 2 tab Documented by: Discontinued Medications Bupivacaine HCl (Marcaine 0.5%) Confirm Administered Dose 30 ml .ROUTE .STK-MED ONE Stop: 11/18/19 07:18 Last Admin: 11/18/19 08:43 Dose: 20 ml Documented by: Bupivacaine HCl/Dextrose (Marcaine 0.75% Spinal) Confirm Administered Dose 2 ml .ROUTE .STK-MED ONE Stop: 11/18/19 06:48 Cefazolin Sodium (Ancef) Confirm Administered Dose 2 gm .ROUTE .STK-MED ONE Stop: 11/18/19 06:46 Citric Acid/Sodium Citrate (Bicitra Solution) 30 ml PO ONETIME ONE Stop: 11/18/19 00:31 Last Admin: 11/18/19 06:08 Dose: Not Given Documented by: Citric Acid/Sodium Citrate (Bicitra Solution) 30 ml PO ONETIME ONE Stop: 11/18/19 06:31 Last Admin: 11/18/19 07:07 Dose: 30 ml Documented by: Citric Acid/Sodium Citrate (Bicitra Solution) Confirm Administered Dose 30 ml .ROUTE .STK-MED ONE Stop: 11/18/19 06:12 Last Admin: 11/18/19 10:15 Dose: Not Given Documented by: Diphenhydramine HCl (Benadryl) 25 mg IVPUSH Q6H PRN PRN Reason: Pruritis Last Admin: 11/18/19 21:00 Dose: 25 mg Documented by: Fentanyl (Sublimaze) Confirm Administered Dose 100 mcg .ROUTE .STK-MED ONE Stop: 11/18/19 08:51 Fentanyl (Sublimaze) 50 mcg IVPUSH Q5M PRN PRN Reason: Pain Last Admin: 11/18/19 09:35 Dose: 50 mcg Documented by: Hydromorphone HCl (Dilaudid) Confirm Administered Dose 0.5 mg .ROUTE .STK-MED ONE Stop: 11/18/19 09:15 Hydromorphone HCl (Dilaudid) Confirm Administered Dose 0.5 mg .ROUTE .STK-MED ONE Stop: 11/18/19 09:20 Lactated Ringer's (Ringers, Lactated) 1,000 mls @ 125 mls/hr IV ASDIRECTED ADALBERTO Lactated Ringer's (Ringers, Lactated) 1,000 mls @ 125 mls/hr IV ASDIRECTED ADAL[facility]ERTO Last Admin: 11/18/19 06:50 Dose: 125 mls/hr Documented by: Lactated Ringer's (Ringers, Lactated) Confirm Administered Dose 2,000 mls @ as directed .ROUTE .STK-MED ONE Stop: 11/18/19 06:12 Last Admin: 11/18/19 10:15 Dose: Not Given Documented by: Lactated Ringer's (Ringers, Lactated) Confirm Administered Dose 2,000 mls @ as directed .ROUTE .STK-MED ONE Stop: 11/18/19 06:46 Dextrose/Lactated Ringer's (Dextrose 5%-Lactated Ringers) 1,000 mls @ 125 mls/hr IV ASDIRECTED [facility] Stop: 11/18/19 17:34 Last Admin: 11/18/19 11:23 Dose: 125 mls/hr Documented by: Ketamine HCl (Ketalar) Confirm Administered Dose 500 mg .ROUTE .STK-MED ONE Stop: 11/18/19 09:00 Ketorolac Tromethamine (Toradol) Confirm Administered Dose 30 mg .ROUTE .STK-MED ONE Stop: 11/18/19 06:46 Ketorolac Tromethamine (Toradol) 30 mg IVPUSH Q6H [facility] Stop: 11/19/19 03:01 Last Admin: 11/19/19 03:17 Dose: 30 mg Documented by: Metoclopramide HCl (Reglan) 10 mg IVPUSH ONETIME ONE Stop: 11/18/19 00:31 Last Admin: 11/18/19 06:08 Dose: Not Given Documented by: Metoclopramide HCl (Reglan) 10 mg IVPUSH ONETIME ONE Stop: 11/18/19 06:31 Last Admin: 11/18/19 07:07 Dose: 10 mg Documented by: Midazolam HCl (Versed 1 Mg/Ml) Confirm Administered Dose 2 mg .ROUTE .STK-MED ONE Stop: 11/18/19 08:47 Midazolam HCl (Versed 1 Mg/Ml) Confirm Administered Dose 2 mg .ROUTE .STK-MED ONE Stop: 11/18/19 08:53 Morphine Sulfate (Duramorph Pf) Confirm Administered Dose 1 mg .ROUTE .STK-MED ONE Stop: 11/18/19 06:46 Ondansetron HCl (Zofran) Confirm Administered Dose 4 mg .ROUTE .STK-MED ONE Stop: 11/18/19 06:46 Ondansetron HCl (Zofran) 4 mg IVPUSH ONETIME PRN PRN Reason: Nausea/Vomiting Oxytocin (Pitocin) Confirm Administered Dose 10 unit .ROUTE .STK-MED ONE Stop: 11/18/19 06:46 Sodium Chloride (Saline Flush) 10 ml FLUSH ASDIRECTED PRN PRN Reason: Keep Vein Open Sodium Chloride (Saline Flush) 10 ml FLUSH ASDIRECTED PRN PRN Reason: Keep Vein Open
[2019-11-20] MEDS: Acetaminophen/oxyCODONE 325-5 MG Tab PO PRN ×2 (09:49→14:16)
[2019-11-20] MEDS: Docusate Sodium 100 MG Cap PO PRN (12:06)
== END 2019-11-20 14:30 | disposition home or self-care (01) | DRG 788 ==
LOC: EEVIPCON 04:26 → JD.OB 04:26
PROVIDERS: ADMIT Obstetrics & Gynecology; ATTEND Obstetrics & Gynecology
PROC: 10D00Z1 Extraction of Products of Conception, Low, Open Approach (ICD-10-PCS; principal; 2019-11-18)
DX: O34.211 Maternal care for low transverse scar from previous cesarean delivery (principal); O99.334 Smoking (tobacco) complicating childbirth; F17.210 Nicotine dependence, cigarettes, uncomplicated; O99.214 Obesity complicating childbirth; E66.9 Obesity, unspecified; Z88.1 Allergy status to other antibiotic agents; Z91.09 Other allergy status, other than to drugs and biological substances; Z37.0 Single live birth; Z3A.38 38 weeks gestation of pregnancy
CPT/HCPCS: 01961; 36415; 59025; 80306; 81001; 85025; 86592; 86850; 86900; 86901; 94762; A9270-GY; J0690; J1170; J1200; J1885; J2250; J2274; J2405; J2590; J2765; J3010; J3490; J7120; J7121

== ENCOUNTER 2022-04-12 13:32 | Emergency (ER) | payer MEDICAID ==
[2022-04-12] MEDS ORDERED: Haloperidol Lactate 5 MG/ML SDV IM ONE (15:32)
== END 2022-04-12 16:55 | disposition home or self-care (01) ==
LOC: JD.ED 13:32
DX: G43.909 Migraine, unspecified, not intractable, without status migrainosus (principal); F17.210 Nicotine dependence, cigarettes, uncomplicated; E66.9 Obesity, unspecified; Z68.39 Body mass index [BMI] 39.0-39.9, adult; Z91.048 Other nonmedicinal substance allergy status; Z88.1 Allergy status to other antibiotic agents; Z88.8 Allergy status to other drugs, medicaments and biological substances; Z86.16 Personal history of COVID-19
CPT/HCPCS: 70450; 96372; 99284; J1630

== ENCOUNTER 2022-10-15 09:09 | Emergency (ER) | payer MEDICAID ==
[2022-10-15] MEDS ORDERED: Sodium Chloride 0.9% 10 ML Syringe FLUSH PRN (10:13)
[2022-10-15 10:36] LABS: APPEARANCE,URINE CLEAR (Clear); BILIRUBIN,URINE NEGATIVE (Negative); COLOR,URINE YELLOW (Yellow); GLUCOSE,URINE NEGATIVE (Negative); KETONES,URINE NEGATIVE (Negative); LEUKOCYTE ESTERASE,URINE NEGATIVE (Negative); NITRITE,URINE NEGATIVE (Negative); OCCULT BLOOD,URINE NEGATIVE (Negative); PROTEIN,URINE NEGATIVE (Negative); UROBILINOGEN,URINE 0.2 (0.2-1.0)
[2022-10-15 10:38] LABS: BASOPHILS ABSOLUTE AUTO 0.02 K/mm3 (0.01-0.08); BASOPHILS PERCENT AUTO 0.2 % (0.1-1.2); EOSINOPHILS ABSOLUTE AUTO 0.18 K/mm3 (0.04-0.36); HEMATOCRIT 43.3 % (34.1-44.9); HEMOGLOBIN 14.5 gm/dl (11.2-15.7); IMMATURE GRAN ABSOLUTE AUTO 0.02 K/mm3 (0.00-0.10); IMMATURE GRAN PERCENT AUTO 0.2 % (<=1.0); LYMPHOCYTES ABSOLUTE AUTO 2.62 K/mm3 (1.18-3.74); LYMPHOCYTES PERCENT AUTO 29.7 % (19.3-51.7); MEAN CORPUSCULAR HEMOGLOBIN 31.1 pg (25.6-32.2); MEAN CORPUSCULAR HGB CONC 33.5 g/dl (32.2-35.5); MEAN CORPUSCULAR VOLUME 92.9 fl (79.4-94.8); MEAN PLATELET VOLUME 10.3 fl (9.4-12.3); MONOCYTES ABSOLUTE AUTO 1.07 K/mm3 (0.24-0.36); MONOCYTES PERCENT AUTO 12.1 % (4.7-12.5); NEUTROPHILS PERCENT AUTO 55.8 % (34.0-71.1); PLATELET COUNT,PLT 344 K/mm3 (182-369); RED BLOOD CELL COUNT 4.66 M/mm3 (3.98-5.22); WHITE BLOOD CELL COUNT,WBC 8.81 K/mm3 (3.98-10.04)
[2022-10-15 10:49] LABS: BARBITURATE SCREEN,URINE NEGATIVE (CUTOFF=200); BENZODIAZEPINES SCREEN,URINE NEGATIVE (CUTOFF=150); BUPRENORPHINE SCREEN,URINE NEGATIVE (CUTOFF=10); METHADONE SCREEN, URINE NEGATIVE (CUTOFF=200); METHAMPHETAMINES SCREEN, URINE NEGATIVE (CUTOFF=500); OXYCODONE SCREEN,URINE NEGATIVE (CUT0FF=100); PROPOXYPHENE SCREEN,URINE NEGATIVE (CUTOFF=300); THC SCREEN,URINE 20 NG/ML PRESUMPTIVE POSITIVE (CUTOFF=50)
[2022-10-15 10:50] LABS: BACTERIA,URINE FEW /hpf (FEW); RBC,URINE 0-5 /hpf (0-5); SQUAMOUS EPITHELIAL CELLS,UR 0-5 /hpf (0-5); WBC,URINE 0-5 /hpf (0-5)
[2022-10-15 10:51] LABS: MUCUS,URINE MODERATE /hpf (FEW)
[2022-10-15 10:53] LABS: AMPHETAMINES SCREEN, URINE NEGATIVE (CUTOFF=500)
[2022-10-15 11:01] LABS: A/G RATIO 0.9 (1-2); ALBUMIN 3.5 g/dl (3.4-5.0); ANION GAP 11.3 (5-15); BILIRUBIN TOTAL 0.2 mg/dL (0.2-1.0); CALCIUM 9.1 mg/dL (8.5-10.1); CREATININE 0.6 mg/dL (0.55-1.02); EST CRCL DRUG DOSING (CG) 121.13 mL/min; POTASSIUM,K 4.3 mEq/L (3.5-5.1); PROTEIN TOTAL,TP 7.3 g/dl (6.4-8.2)
[2022-10-15] MEDS ORDERED: Ketorolac 30 MG/ML SDV IVPUSH ONE (11:14)
[2022-10-15] MEDS ORDERED: Ondansetron 4 MG/2 ML SDV IVPUSH ONE (11:14)
== END 2022-10-15 11:54 | disposition home or self-care (01) ==
LOC: JD.ED 09:09
DX: R10.32 Left lower quadrant pain (principal); R11.0 Nausea; F17.210 Nicotine dependence, cigarettes, uncomplicated; Z91.09 Other allergy status, other than to drugs and biological substances; Z88.1 Allergy status to other antibiotic agents; Z88.8 Allergy status to other drugs, medicaments and biological substances; Z86.16 Personal history of COVID-19
CPT/HCPCS: 36415; 80053; 80306; 80307; 81001; 81025; 85025; 96374; 96375; 99284; J1885; J2405; J3490; 99283

== ENCOUNTER 2022-12-27 22:44 | Emergency (ER) | payer MEDICAID ==
[2022-12-28] MEDS ORDERED: Acetaminophen/HYDROcodone 325-5 MG Tab PO ONE (01:14)
== END 2022-12-28 01:43 | disposition home or self-care (01) ==
LOC: JD.ED 22:44
DX: S16.1XXA Strain of muscle, fascia and tendon at neck level, initial encounter (principal); E66.9 Obesity, unspecified; Z68.41 Body mass index [BMI] 40.0-44.9, adult; Z86.16 Personal history of COVID-19; Z91.048 Other nonmedicinal substance allergy status; Z88.1 Allergy status to other antibiotic agents; Z88.8 Allergy status to other drugs, medicaments and biological substances; Z79.899 Other long term (current) drug therapy; W18.40XA Slipping, tripping and stumbling without falling, unspecified, initial encounter
CPT/HCPCS: 72040; 99283; A9270

== ENCOUNTER 2024-01-14 01:14 | Emergency (ER) | payer MEDICAID ==
[2024-01-14] MEDS: Acetaminophen/oxyCODONE 325-5 MG Tab PO ONE (02:27)
[2024-01-14] MEDS: Prazosin 1 MG Cap PO ONE (02:28)
[2024-01-14] MEDS: Sertraline 50 MG Tab PO ONE (02:28)
[2024-01-14] MEDS: Meloxicam 7.5 MG Tab PO ONE (02:28)
== END 2024-01-14 02:46 | disposition home or self-care (01) ==
LOC: JD.ED 01:14
DX: F32.4 Major depressive disorder, single episode, in partial remission (principal); F51.5 Nightmare disorder; M50.10 Cervical disc disorder with radiculopathy, unspecified cervical region; G56.03 Carpal tunnel syndrome, bilateral upper limbs; E66.9 Obesity, unspecified; Z68.37 Body mass index [BMI] 37.0-37.9, adult; Z86.16 Personal history of COVID-19; Z79.899 Other long term (current) drug therapy; Z91.048 Other nonmedicinal substance allergy status; Z88.1 Allergy status to other antibiotic agents; Z88.8 Allergy status to other drugs, medicaments and biological substances; Z88.3 Allergy status to other anti-infective agents
CPT/HCPCS: 99283; A9270; 99284

== ENCOUNTER 2024-01-21 15:46 | Emergency (ER) | payer MEDICAID | END 2024-01-21 17:51 | disposition home or self-care (01) | LOC: JD.ED 15:46 | DX: G56.03 Carpal tunnel syndrome, bilateral upper limbs (principal); F17.210 Nicotine dependence, cigarettes, uncomplicated; E66.9 Obesity, unspecified; Z86.16 Personal history of COVID-19; Z79.899 Other long term (current) drug therapy; Z88.1 Allergy status to other antibiotic agents; Z88.8 Allergy status to other drugs, medicaments and biological substances; Z91.048 Other nonmedicinal substance allergy status | CPT/HCPCS: 99283 ==

== ENCOUNTER 2024-02-15 03:56 | Emergency (ER) | payer MEDICAID ==
[2024-02-15 04:55] LABS: BASOPHILS PERCENT AUTO 0.5 % (0.0-1.0); EOSINOPHILS ABSOLUTE AUTO 0.1 K/mm3 (0.0-0.4); EOSINOPHILS PERCENT AUTO 1.3 % (0.0-6.0); HEMATOCRIT 40.9 % (37.0-47.0); HEMOGLOBIN 13.7 gm/dl (12.0-16.0); IMMATURE GRAN ABSOLUTE AUTO 0.02 K/mm3 (0.00-0.05); IMMATURE GRAN PERCENT AUTO 0.3 % (0.0-0.4); LYMPHOCYTES ABSOLUTE AUTO 2.4 K/mm3 (1.0-4.8); LYMPHOCYTES PERCENT AUTO 29.5 % (24.0-44.0); MEAN CORPUSCULAR HEMOGLOBIN 30.8 pg (28.0-32.0); MEAN CORPUSCULAR HGB CONC 33.5 g/dl (32.0-36.0); MEAN CORPUSCULAR VOLUME 91.9 fl (83.0-99.0); MEAN PLATELET VOLUME 10.2 fl (9.4-12.3); MONOCYTES ABSOLUTE AUTO 0.8 K/mm3 (0.0-0.8); MONOCYTES PERCENT AUTO 10.5 % (0.0-8.0); NEUTROPHILS ABSOLUTE AUTO 4.6 K/mm3 (1.8-7.7); NEUTROPHILS PERCENT AUTO 57.9 % (41.0-71.0); PLATELET COUNT,PLT 320 K/mm3 (150-400); RED BLOOD CELL COUNT 4.45 M/mm3 (4.10-5.30)
[2024-02-15 05:16] LABS: ALBUMIN 3.3 g/dl (3.4-5.0); ANION GAP 13.8 (5-15); BILIRUBIN TOTAL 0.2 mg/dL (0.2-1.0); BUN/CREATININE RATIO 6.7 (14-18); CALCIUM 8.5 mg/dL (8.5-10.1); CREATININE 0.6 mg/dL (0.55-1.02); POTASSIUM,K 2.8 mEq/L (3.5-5.1); PROTEIN TOTAL,TP 6.6 g/dl (6.4-8.2)
[2024-02-15] MEDS: Potassium Chloride 20 MEQ Tab.ER PO ONE (05:27)
[2024-02-15] MEDS: Loperamide 2 MG Cap PO ONE (05:29)
[2024-02-15] MEDS: Magnesium Oxide 400 MG Tab PO ONE (06:02)
== END 2024-02-15 06:04 | disposition home or self-care (01) ==
LOC: JD.ED 03:56
DX: R19.7 Diarrhea, unspecified (principal); R11.2 Nausea with vomiting, unspecified; E87.6 Hypokalemia; E83.42 Hypomagnesemia; E66.9 Obesity, unspecified; F17.200 Nicotine dependence, unspecified, uncomplicated; Z86.16 Personal history of COVID-19; Z90.49 Acquired absence of other specified parts of digestive tract; Z88.1 Allergy status to other antibiotic agents; Z88.8 Allergy status to other drugs, medicaments and biological substances; Z91.048 Other nonmedicinal substance allergy status; Z79.52 Long term (current) use of systemic steroids; Z79.899 Other long term (current) drug therapy; Z68.41 Body mass index [BMI] 40.0-44.9, adult
CPT/HCPCS: 36415; 80053; 83735; 85025; 87493; 99284; A9270

== ENCOUNTER 2024-06-04 15:50 | Emergency (ER) | payer MEDICAID ==
[2024-06-04] MEDS: Sodium Chloride 0.9% 1,000 ML IV ONE (18:57)
[2024-06-04] MEDS: Metoclopramide 10 MG/2 ML SDV IVPUSH ONE (18:58)
[2024-06-04 19:01] LABS: BASOPHILS PERCENT AUTO 0.3 % (0.0-1.0); EOSINOPHILS ABSOLUTE AUTO 0.1 K/mm3 (0.0-0.4); EOSINOPHILS PERCENT AUTO 1.2 % (0.0-6.0); HEMATOCRIT 45.9 % (37.0-47.0); HEMOGLOBIN 15.6 gm/dl (12.0-16.0); IMMATURE GRAN ABSOLUTE AUTO 0.02 K/mm3 (0.00-0.05); IMMATURE GRAN PERCENT AUTO 0.3 % (0.0-0.4); LYMPHOCYTES ABSOLUTE AUTO 1.8 K/mm3 (1.0-4.8); LYMPHOCYTES PERCENT AUTO 26.8 % (24.0-44.0); MEAN CORPUSCULAR HEMOGLOBIN 30.8 pg (28.0-32.0); MEAN CORPUSCULAR VOLUME 90.5 fl (83.0-99.0); MEAN PLATELET VOLUME 9.7 fl (9.4-12.3); MONOCYTES ABSOLUTE AUTO 0.9 K/mm3 (0.0-0.8); MONOCYTES PERCENT AUTO 13.6 % (0.0-8.0); NEUTROPHILS ABSOLUTE AUTO 3.9 K/mm3 (1.8-7.7); NEUTROPHILS PERCENT AUTO 57.8 % (41.0-71.0); PLATELET COUNT,PLT 329 K/mm3 (150-400); RED BLOOD CELL COUNT 5.07 M/mm3 (4.10-5.30); WHITE BLOOD CELL COUNT,WBC 6.68 K/mm3 (3.9-11.3)
[2024-06-04 19:30] LABS: A/G RATIO 0.9 (1-2); ALBUMIN 3.7 g/dl (3.4-5.0); ANION GAP 10.2 (5-15); BILIRUBIN TOTAL 0.3 mg/dL (0.2-1.0); BUN/CREATININE RATIO 2.9 (14-18); CALCIUM 8.9 mg/dL (8.5-10.1); CREATININE 0.7 mg/dL (0.55-1.02); EST CRCL DRUG DOSING (CG) 101.9 mL/min; MAGNESIUM 1.9 mg/dL (1.8-2.4); POTASSIUM,K 3.2 mEq/L (3.5-5.1); PROTEIN TOTAL,TP 7.8 g/dl (6.4-8.2)
[2024-06-04] MEDS: Ketorolac 30 MG/ML SDV IVPUSH ONE (20:04)
[2024-06-04] MEDS: Ondansetron 4 MG/2 ML SDV IVPUSH ONE (21:04)
[2024-06-04] MEDS: Benzonatate 100 MG Cap PO ONE (21:04)
== END 2024-06-04 21:18 | disposition home or self-care (01) ==
LOC: JD.ED 15:50
DX: R51.9 Headache, unspecified (principal); Z91.048 Other nonmedicinal substance allergy status; Z88.1 Allergy status to other antibiotic agents; Z91.030 Bee allergy status; Z88.8 Allergy status to other drugs, medicaments and biological substances; Z79.899 Other long term (current) drug therapy; Z86.16 Personal history of COVID-19
CPT/HCPCS: 36415; 71045; 71045-26; 80053; 83735; 85025; 96361; 96374; 96375; 99284-25; A9270-GY; J1885; J2405; J2765; J7030

== ENCOUNTER 2024-09-19 23:59 | Emergency (ER) | payer MEDICAID | END 2024-09-20 02:40 | disposition home or self-care (01) | LOC: JD.ED 23:59 | DX: S80.861A Insect bite (nonvenomous), right lower leg, initial encounter (principal); Z88.8 Allergy status to other drugs, medicaments and biological substances; Z91.030 Bee allergy status; Z79.899 Other long term (current) drug therapy; E66.9 Obesity, unspecified; Z90.49 Acquired absence of other specified parts of digestive tract; W57.XXXA Bitten or stung by nonvenomous insect and other nonvenomous arthropods, initial encounter | CPT/HCPCS: 99282; A9270 ==

== ENCOUNTER 2024-10-03 21:20 | Emergency (ER) | payer MEDICAID ==
[2024-10-03] MEDS ORDERED: Naloxone 0.4 MG/ML SDV IVPUSH PRN (22:26)
== END 2024-10-03 23:17 | disposition home or self-care (01) ==
LOC: JD.ED 21:20
DX: G56.03 Carpal tunnel syndrome, bilateral upper limbs (principal); E66.9 Obesity, unspecified; Z88.8 Allergy status to other drugs, medicaments and biological substances; Z91.030 Bee allergy status; Z79.899 Other long term (current) drug therapy; Z68.39 Body mass index [BMI] 39.0-39.9, adult
CPT/HCPCS: 73110; 96372; 99283; J1171